=== PATIENT | female | born 1980 | race African-American/Black ===

== ENCOUNTER 2019-06-29 07:04 | Emergency (ER) | payer OTHER ==
[~2019-06-29] VITALS: Ht 172.7 cm; Wt 61.2 kg
--- NOTE | 2019-06-29 07:39 | RAD ---
Indication: Cat bite. TECHNIQUE: 3 views of the right hand COMPARISON: None Findings/ impression: No acute fracture or dislocation. No radiopaque foreign body. No soft tissue emphysema. Electronically signed by: Imer eWaver DO (06/29/2019 7:36 AM) [facility]
[2019-06-29 07:58] LABS: BASO # 0.1 x10^3/uL (0.0-0.2); BASO % 1 % (0-3); EOS # 0.1 x10^3/uL (0.0-0.7); EOS % 3 % (0-3); HEMATOCRIT 38.6 % (36.0-47.0); HEMOGLOBIN 12.9 g/dL (12.0-15.5); LYMPH # 1.1 x10^3/uL (1.0-4.8); LYMPH % 28 % (24-48); MEAN CORPUSCULAR HEMOGLOBIN 32 pg (25-35); MEAN CORPUSCULAR HGB CONC 33 g/dL (31-37); MEAN CORPUSCULAR VOLUME 94 fL (79-100); MONO # 0.4 x10^3/uL (0.0-1.1); MONO % 11 % (0-9); NEUT # 2.1 x10^3uL (1.8-7.7); NEUT % 56 % (31-73); PLATELET COUNT 231 x10^3/uL (140-400); RED CELL DISTRIBUTION WIDTH 12.3 % (11.5-14.5); WHITE BLOOD COUNT 3.8 x10^3/uL (4.0-11.0)
[2019-06-29] MEDS ORDERED: TETRACAINE 0.5% OPHTH SOLUTION 4ML BOTTLE. OD ONE (08:00)
[2019-06-29] MEDS ORDERED: FLUORESCEIN 1MG EYE STRIP. OD ONE (08:00)
[2019-06-29] MEDS ORDERED: AMPICILLIN/SULBACTAM 3 GM in IV NORMAL SALINE 100ML 100 ML IV ONE (08:00)
[2019-06-29 08:06] LABS: ALBUMIN 3.7 g/dL (3.4-5.0); ALBUMIN/GLOBULIN RATIO 1.2 (1.0-1.7); CALCIUM 8.1 mg/dL (8.5-10.1); CREATININE 0.9 mg/dL (0.6-1.0); GFR 83.9; TOTAL BILIRUBIN 0.5 mg/dL (0.2-1.0); TOTAL PROTEIN 6.8 g/dL (6.4-8.2)
--- NOTE | 2019-06-29 08:10 | PHYS DOC ---
Past History Past Medical History: Hypertension Past Surgical History: No Surgical History Smoking: Non-smoker Alcohol Use: None Drug Use: None Adult General Chief Complaint Chief Complaint: ANIMAL BITE HPI HPI Patient is a 39-year-old female who was bitten and clawed by a cat that was trying to protect itself from a dog. Patient is a director oncology. This happened 4 days ago. She was seen and started on antibiotic eye ointment which she cannot recall, and Augmentin for the hand injury. Since that time, the eye is not significantly changed. The hand is doing worse. It is more swollen and painful. She is right-hand] right-hand dominant. Her rabies titer is good per her report, her tetanus status is within the past 5 years. No numbness or tingling.[] Review of Systems Review of Systems Constitutional: Denies fever or chills [] Eyes: See history of present illness[] HENT: Denies nasal congestion or sore throat [] Respiratory: Denies cough or shortness of breath [] Cardiovascular: No chest pain or palpitations[] GI: Denies abdominal pain, nausea, vomiting, bloody stools or diarrhea [] : Denies dysuria or hematuria [] Musculoskeletal: Denies back pain or joint pain [] Integument: Denies rash, see history of present illness[] Neurologic: Denies headache, focal weakness or sensory changes [] Endocrine: Denies polyuria or polydipsia [] All other systems were reviewed and found to be within normal limits, except as documented in this note. Current Medications Current Medications Current Medications Medications (Trade) Dose Ordered Sig/Cassie Start Time Stop Time Status Last Admin Dose Admin Ampicillin Sodium/ Sulbactam Sodium 3 gm/Sodium Chloride 100 ml @ 200 mls/hr 1X ONCE 06/29/19 07:30 06/29/19 07:59 UNV Physical Exam Physical Exam Constitutional: Well developed, well nourished, no acute distress, non-toxic appearance. [] HENT: Normocephalic, atraumatic, bilateral external ears normal, oropharynx moist, no oral exudates, nose normal. [] Eyes: PERRLA, EOMI, corneal injection at the 11 to 12 o'clock position of her right eye with reference to the pupil., no discharge. Examined with slit lamp, fluorescein administered along with Alcaine, there is no cell or flare, anterior chambers clear, no fluorescein uptake at the area of injection. Negative Meka sign. [] Neck: Normal range of motion, no tenderness, supple, no stridor. [] Cardiovascular:Heart rate regular rhythm, no murmur [] Lungs & Thorax: Bilateral breath sounds clear to auscultation [] Abdomen: Bowel sounds normal, soft, no tenderness, no masses, no pulsatile masses. [] Skin: Warm, dry, no erythema, no rash. [] Back: No tenderness, no CVA tenderness. [] Extremities: Right hand puncture wound volar aspect, hyperthenar eminence. The entire hand is edematous. FDS, FDP, and extensor mechanisms are intact. Decreased active range of motion secondary to the swelling. Patient is distally neurovascularly intact with capillary refill of less than 2 seconds. There is no axillary lymphadenopathy present. The other 3 extremities show: No tenderness, no cyanosis, no clubbing, ROM intact, no edema. [] Neurologic: Alert and oriented X 3, normal motor function, normal sensory function, no focal deficits noted. [] Psychologic: Affect normal, judgement normal, mood normal. [] EKG EKG [] Radiology/Procedures Radiology/Procedures PROCEDURE: HAND RIGHT 3V Indication: Cat bite. TECHNIQUE: 3 views of the right hand COMPARISON: None Findings/ impression: No acute fracture or dislocation. No radiopaque foreign body. No soft tissue emphysema.[] Course & Med Decision Making Course & Med Decision Making Pertinent Labs and Imaging studies reviewed. (See chart for details) Medical decision making: Patient failing outpatient antibiotics. It appears that her eye is healing well but her hand is worsening over time. She is being admitted/transferred to [facility] for further care and higher level of care given that they have an infectious disease service at [place] not available at [facility]. ED course: Patient arrived, was placed in bed, and tolerated exam well. IV access was established and antibiotics for cat bites were started. After the return of the laboratory and imaging studies, these were discussed with the patient along with the hospitalist service who requested that she be transferred to [place] given infectious disease availability at that location. All questions were answered. Patient was discharged in improved condition.[] Dragon Disclaimer Dragon Disclaimer This electronic medical record was generated, in whole or in part, using a voice recognition dictation system. Departure Departure: Impression: Primary Impression: Bite from cat Additional Impression: Failure of outpatient treatment Disposition: 05 TRANSFER OTHER Admitting Physician: Azul Alvarez Condition: IMPROVED Referrals: ROSALVA RIVERA (PCP) Problem Qualifiers Primary Impression: Bite from cat Encounter type: initial encounter Qualified Codes: W55.01XA - Bitten by cat, initial encounter NIVIA ALMANZA DO Jun 29, 2019 08:10
[2019-06-29 08:26] LABS: U PREG PATIENT NEGATIVE (NEG)
[2019-06-29 08:35] LABS: AMORPHOUS SEDIMENT,UR PRESENT /HPF; BACTERIA,URINE 0 /HPF (0-FEW); BILIRUBIN,URINE NEG (NEG); CLARITY,URINE CLOUDY; COLOR,URINE AMBER; GLUCOSE,URINE NEG (NEG); NITRITE,URINE NEG (NEG); RBC,URINE 0 /HPF (0-2); SQUAMOUS EPITHELIAL CELL,UR OCC /LPF; UROBILINOGEN,URINE 1 mg/dL (0.2 mg/dL); WBC,URINE RARE /HPF (0-4)
[2019-06-29 09:03] LABS: SEDIMENTATION RATE 8 (0-25)
[2019-06-29 09:26] VITALS: BP 134/98
== END 2019-06-29 09:26 | disposition short-term general hospital (02) ==
LOC: ER 07:04
DX: S61.431A Puncture wound without foreign body of right hand, initial encounter (principal); I10 Essential (primary) hypertension; W55.01XA Bitten by cat, initial encounter; Y93.89 Activity, other specified; Y92.89 Other specified places as the place of occurrence of the external cause; Y99.8 Other external cause status
CPT/HCPCS: 36415; 73130; 80053; 81001; 81025; 85025; 85651; 86140; 87040; 96365; 99285; J0295